=== PATIENT | male | born 1970 | race Caucasian/White ===

== ENCOUNTER 2017-12-18 06:32 | Emergency (ER) | payer MEDICAID ==
[~2017-12-18] VITALS: Ht 200.7 cm; Wt 141.0 kg
[~2017-12-18 06:32] MED LIST: NAPR550 PO; Z.0.NO CURRENT MEDS
[2017-12-18 06:35] VITALS: BP 186/112; PULSE 79; RESP 20; TEMP 98.2; O2SAT 97
[2017-12-18] MEDS ORDERED: SODIUM CHLOR 0.9% 1000 ML INJ 1,000 ML IV SCH (06:36)
[2017-12-18 06:42] VITALS: O2SAT 97
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
[2017-12-18] MEDS ORDERED: KETOROLAC TROMETHAMINE 30 MG/ML (IVP) VIAL IV PUSH ONE (06:45)
[2017-12-18] MEDS ORDERED: SODIUM CHLORIDE 0.9% FLUSH 10 ML FLUSH IV FLUSH PRN (06:45)
[2017-12-18 06:56] LABS: AUTOMATED NEUTROPHIL # 7.4 TH/MM3 (1.8-7.7); BASOPHIL # 0.5 TH/MM3 (0-0.2); BASOPHIL % 3.3 % (0.0-2.0); EOSINOPHIL # 0.7 TH/MM3 (0-0.4); EOSINOPHIL % 4.8 % (0.0-4.0); HEMATOCRIT 47.5 % (39.0-51.0); HEMOGLOBIN 16.7 GM/DL (13.0-17.0); LYMPH % 29.9 % (9.0-44.0); LYMPHOCYTE # 4.1 TH/MM3 (1.0-4.8); MEAN CELL VOLUME 86.4 FL (80.0-100.0); MEAN CORPUSCULAR HEMOGLOBIN 30.5 PG (27.0-34.0); MEAN CORPUSCULAR HGB CONC 35.3 % (32.0-36.0); MEAN PLATELET VOLUME 8.8 FL (7.0-11.0); MONO % 7.7 % (0.0-8.0); MONOCYTE # 1.1 TH/MM3 (0-0.9); NEUT % 54.3 % (16.0-70.0); PLATELET COUNT 279 TH/MM3 (150-450); RED BLOOD COUNT 5.49 MIL/MM3 (4.50-5.90); RED CELL DISTRIBUTION WIDTH 12.8 % (11.6-17.2); WHITE BLOOD COUNT 13.8 TH/MM3 (4.0-11.0)
[2017-12-18 07:06] LABS: CHLORIDE 106 MEQ/L (98-107); SODIUM (NA) 140 MEQ/L (136-145)
[2017-12-18 07:09] LABS: CALCIUM 8.7 MG/DL (8.5-10.1)
[2017-12-18 07:10] LABS: ALBUMIN 3.9 GM/DL (3.4-5.0); BICARBONATE 25.9 MEQ/L (21.0-32.0); BLOOD UREA NITROGEN 16 MG/DL (7-18); GLUCOSE,RANDOM 98 MG/DL (74-106)
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
[2017-12-18 07:13] LABS: ALT (GPT) 40 U/L (12-78); AST (GOT) 18 U/L (15-37); GLOMERULAR FILTRATION RATE 72 ML/MIN (>89)
[2017-12-18 07:14] LABS: TOTAL BILIRUBIN ADULT 0.3 MG/DL (0.2-1.0); TOTAL PROTEIN 7.6 GM/DL (6.4-8.2)
[2017-12-18 07:16] LABS: ALKALINE PHOSPHATASE 91 U/L (45-117)
[2017-12-18] MEDS ORDERED: TRAM50TA PO (07:30)
[2017-12-18] MEDS ORDERED: TAMS5CAP PO (07:30)
[2017-12-18] MEDS ORDERED: CIPR-9 PO (07:30)
--- NOTE | 2017-12-18 07:31 | PD ---
Physical Exam Narrative This is a 47 year Bandar who presented to the ER complaining of right flank pain. I was signed out to me from previous shift. Patient clinically improved with pain medicine, CAT scan shows a 2-3 mm stone in the UVJ almost in the bladder. We will give the patient antibiotics, Flomax, pain management and recommend that he follows up with urology in 1-2 days. Patient understands the plan and agrees. Last 24 hours Impressions Abdomen/Pelvis CT 12/18/1739 Signed Impressions: Service Date/Time: Monday, December 18, 2017 06:54 - CONCLUSION: 1. Slight hydronephrosis right kidney due to an approximate 2-3 mm right UVJ stone almost inside the bladder. 2. Chronic spondylolysis bilateral L5. K. Hari Rahman MD Data Data Last Documented VS Vital Signs Date Time Temp Pulse Resp B/P (MAP) Pulse Ox O2 Delivery O2 Flow Rate FiO2 12/18/17 06:42 97 Room Air 12/18/17 06:35 98.2 79 20 186/112 (136) Orders Orders Complete Blood Count With Diff (12/18/17 06:36) Comprehensive Metabolic Panel (12/18/17 06:36) Urinalysis - C+S If Indicated (12/18/17 06:36) Iv Access Insert/Monitor (12/18/17 06:36) Ecg Monitoring (12/18/17 06:36) Oximetry (12/18/17 06:36) Sodium Chlor 0.9% 1000 Ml Inj (Ns 1000 M (12/18/17 06:36) Sodium Chloride 0.9% Flush (Ns Flush) (12/18/17 06:45) Ct Abd/Pel W/O Iv Contrast (12/18/17 06:39) Ketorolac Inj (Toradol Inj) (12/18/17 06:45) Labs Laboratory Tests Test 12/18/17 06:40 White Blood Count 13.8 TH/MM3 Red Blood Count 5.49 MIL/MM3 Hemoglobin 16.7 GM/DL Hematocrit 47.5 % Mean Corpuscular Volume 86.4 FL Mean Corpuscular Hemoglobin 30.5 PG Mean Corpuscular Hemoglobin Concent 35.3 % Red Cell Distribution Width 12.8 % Platelet Count 279 TH/MM3 Mean Platelet Volume 8.8 FL Neutrophils (%) (Auto) 54.3 % Lymphocytes (%) (Auto) 29.9 % Monocytes (%) (Auto) 7.7 % Eosinophils (%) (Auto) 4.8 % Basophils (%) (Auto) 3.3 % Neutrophils # (Auto) 7.4 TH/MM3 Lymphocytes # (Auto) 4.1 TH/MM3 Monocytes # (Auto) 1.1 TH/MM3 Eosinophils # (Auto) 0.7 TH/MM3 Basophils # (Auto) 0.5 TH/MM3 CBC Comment DIFF FINAL Differential Comment Blood Urea Nitrogen 16 MG/DL Creatinine 1.10 MG/DL Random Glucose 98 MG/DL Total Protein 7.6 GM/DL Albumin 3.9 GM/DL Calcium Level 8.7 MG/DL Alkaline Phosphatase 91 U/L Aspartate Amino Transf (AST/SGOT) 18 U/L Alanine Aminotransferase (ALT/SGPT) 40 U/L Total Bilirubin 0.3 MG/DL Sodium Level 140 MEQ/L Potassium Level 4.0 MEQ/L Chloride Level 106 MEQ/L Carbon Dioxide Level 25.9 MEQ/L Anion Gap 8 MEQ/L Estimat Glomerular Filtration Rate 72 ML/MIN MDM Supervised Visit with [facility]UMI: Yes Diagnosis Primary Impression: Right flank pain Additional Impression: Nephrolithiasis Additional Instruction: Drink lots of fluids, follow-up with urology intensity of symptoms she did not improve. Scripts Ciprofloxacin (Cipro) 500 Mg Tab 500 MG PO BID for Infection for 5 Days, #10 TAB 0 Refills Prov: Jasper Covarrubias MD 12/18/17 Tamsulosin (Flomax) 0.4 Mg Cap 0.4 MG PO HS for Manage Prostate Problems, #15 CAP 0 Refills Prov: Jasper Covarrubias MD 12/18/17 Tramadol (Tramadol) 50 Mg Tab 50 MG PO Q4H Y for PAIN, #20 TAB 0 Refills Prov: Jasper Covarrubias MD 12/18/17 Disposition: 01 DISCHARGE HOME Condition: Stable Jasper Covarrubias MD Dec 18, 2017 07:31
[2017-12-18 07:44] VITALS: BP 119/64
== END 2017-12-18 08:10 | disposition home or self-care (01) ==
LOC: PHED 06:32
DX: N20.0 Calculus of kidney (principal); R10.9 Unspecified abdominal pain; J45.909 Unspecified asthma, uncomplicated; K21.9 Gastro-esophageal reflux disease without esophagitis; F17.210 Nicotine dependence, cigarettes, uncomplicated; Z87.442 Personal history of urinary calculi
CPT/HCPCS: 74176; 80053; 85025; 96361; 96374; 99284; J1885; J7030